=== PATIENT | male | born 1990 | race Caucasian/White ===

== ENCOUNTER 2019-01-10 21:39 | Emergency (ER) | payer BC ==
[~2019-01-10] VITALS: Ht 180.3 cm; Wt 88.5 kg
--- NOTE | 2019-01-10 21:54 | NUR ---
Pt provided urine sample, sent to lab.
[2019-01-10 22:03] LABS: *BILIRUBIN,URIN 1+ (NEGATIVE); *BLOOD, URINE 3+ (NEGATIVE); *CLARITY,URINE CLOUDY (CLEAR); *KETONES,URINE TRACE (NEGATIVE); *UROBILINOGEN,URINE 0.2 E.U./dl (NORMAL); LEUKOCYTE ESTERASE ,URINE NEGATIVE (NEGATIVE); NITRITE, URINE NEGATIVE (NEGATIVE); UGLUCOSE NEGATIVE (NEGATIVE)
[2019-01-10 22:09] LABS: *COLOR,URINE DARK YELLOW (YELLOW)
[2019-01-10 22:11] LABS: MUCUS,URINE MANY /LPF (0-FEW); RBC,URINE 80-100 /HPF (0-3)
[2019-01-10] MEDS ORDERED: HYDROCODONE/APAP 5-325MG TABLET PO ONE (22:30)
--- NOTE | 2019-01-10 22:30 | NUR ---
Dr. Yoon at bedside for MSE.
--- NOTE | 2019-01-10 22:36 | NUR ---
Pt out of ER for CT.
[2019-01-10] MEDS ORDERED: HYDROCODONE/APAP 5-325MG TABLET ONE (22:38)
--- NOTE | 2019-01-10 22:45 | NUR ---
Pt back to ER from CT.
[2019-01-10 23:06] LABS: BASOPHILS % (AUTO) 0.2 % (0.0-2.0); EOSINOPHILS # (AUTO) 0.1 K/uL (0.0-0.7); EOSINOPHILS % (AUTO) 0.5 % (0.0-7.0); HEMATOCRIT 46.6 % (36.7-47.1); HEMOGLOBIN 15.7 g/dL (12.5-16.3); LYMPHOCYTES % (AUTO) 18.4 % (20.5-51.5); MEAN CORPUSCULAR HGB CONC 34 g/dL (32.5-36.3); MEAN CORPUSCULAR VOLUME 83.2 fL (73.0-96.2); MONOCYTES # (AUTO) 0.6 K/uL (2.0-10.0); MONOCYTES % (AUTO) 5.7 % (0.0-11.0); NEUTROPHILS # (AUTO) 8.2 K/uL (1.8-8.9); NEUTROPHILS % (AUTO) 75.2 % (38.5-71.5); PLATELET COUNT (AUTO) 306 K/uL (152-348); RED BLOOD CELL COUNT(AUTO) 5.61 MIL/uL (4.06-5.63); WHITE BLOOD COUNT (AUTO) 10.9 K/uL (3.6-10.2)
[2019-01-10 23:15] LABS: CREATININE 1.3 mg/dL (0.6-1.3); POTASSIUM 4.4 mmol/L (3.5-5.1)
--- NOTE | 2019-01-11 00:41 | NUR ---
Patient discharged to home in stable conditon. Written and verbal after care instructions given. Patient verbalizes understanding of instructions. Pt ambulated out of ER with steady gait, no acute signs of distress, VSS, all belongings taken, provided with a summary of CT and lab results.
[2019-01-11 00:43] VITALS: BP 138/96
== END 2019-01-11 00:43 | disposition home or self-care (01) ==
LOC: ER 21:41
DX: N20.0 Calculus of kidney (principal)
CPT/HCPCS: 36415; 85025; A4663